=== PATIENT | female | born 1980 | race Caucasian/White ===

== ENCOUNTER 2019-06-24 13:53 | Outpatient (CLI) | payer BC ==
--- NOTE | 2019-06-24 14:33 | MMO ---
Bilateral MAMMO Bilat Diag [facility]. CLINICAL HISTORY: Patient is 39 years old and is seen for diagnostic exam. VIEWS: The views performed were: bilateral craniocaudal with tomosynthesis; bilateral mediolateral oblique with tomosynthesis; and bilateral mediolateral with tomosynthesis. FILMS COMPARED: The present examination has been compared to a prior imaging study performed at [facility] on 06/24/2019. MAMMOGRAM FINDINGS: There is no radiographic abnormality in the region of the palpable abnormality in the outer region of the left breast. No sonographic abnormality is seen the region of palpable concern. In the right breast, there are no suspicious masses, calcifications or areas of architectural distortion. IMPRESSION: THERE IS NO MAMMOGRAPHIC EVIDENCE OF MALIGNANCY. NEGATIVE IMAGING SHOULD NEVER DETER BIOPSY IF FINDINGS ON CLINICAL EXAM ARE SUSPICIOUS. THE FINDINGS AND RECOMMENDATIONS WERE DISCUSSED WITH THE PATIENT PRIOR TO HER LEAVING THE CENTER. A ROUTINE FOLLOW-UP MAMMOGRAM AT AGE 41 IS RECOMMENDED. THE RESULTS OF THIS EXAM WERE SENT TO THE PATIENT. ACR BI-RADS Category 1 - Negative MAMMOGRAPHY NOTE: 1. A negative mammogram report should not delay a biopsy if a dominant of clinically suspicious mass is present. 2. Approximately 10% to 15% of breast cancers are not detected by mammography. 3. Adenosis and dense breasts may obscure an underlying neoplasm. Reported by: RUFUS RODRIGUEZ MD Electonically Signed: [id number]
--- NOTE | 2019-06-24 15:41 | ULT ---
LEFT BREAST DIAGNOSTIC ULTRASOUND: INDICATIONS: Palpable abnormality within the outer aspect of the left breast. COMPARISON: None. FINDINGS: No suspicious sonographic abnormalities seen within the palpable region of interest from the 5 o'cloc k position through the 7 o'clock position. IMPRESSION: No suspicious sonographic abnormality within the palpable region of interest of the left breast. POS: OFF
== END 2019-06-24 13:54 | disposition home or self-care (01) ==
LOC: BICMAMMO 13:53
PROVIDERS: ATTEND Student in an Organized Health Care Education/Training Program
DX: N63.20 Unspecified lump in the left breast, unspecified quadrant (principal)
CPT/HCPCS: 77066; G0279